=== PATIENT | female | born 1975 | race Hispanic/Latino ===

== ENCOUNTER 2018-11-17 11:48 | Day surgery (SDC) | payer BC ==
[2018-11-12 13:18] VITALS: BMI 27.1
[2018-11-17] MEDS ORDERED: ACETIC ACID 5% EXT ONE (13:45)
[2018-11-17] MEDS ORDERED: HYDROmorphone 0.5 mg/0.5 ml ISec IVP PRN (14:48)
[2018-11-17] MEDS ORDERED: Propofol 10 mg/ml Inj (20 ML) ONE (15:00)
[2018-11-17] MEDS ORDERED: Midazolam 2 MG/2 ML VIAL ONE (15:00)
[2018-11-17] MEDS ORDERED: Lactated Ringer's 1,000 ML IV ONE (16:07)
[2018-11-17 17:20] VITALS: BP 117/80; PULSE 67; RESP 18; TEMP 97; O2SAT 100
--- NOTE | 2018-11-18 03:15 | OP ---
PROCEDURE DATE: 11/17/2018 SURGEON: Renae Watkins MD HOME CARE MANAGER: None. TYPE OF ANESTHESIA: General LMA. PREOPERATIVE DIAGNOSES: Abnormal uterine bleeding, JENN 3, endometrial polyp. POSTOPERATIVE DIAGNOSES: Abnormal uterine bleeding, JENN 3, endometrial polyp. PROCEDURES PERFORMED: Hysteroscopic myomectomy, polypectomy, dilation and curettage, loop electro-excisional cautery procedure with endocervical curettage. SPECIMEN SENT TO PATHOLOGY: Endocervical lining, ectocervix, endocervix, submucosal myoma/polyp, endometrial curetting. ESTIMATED BLOOD LOSS: 10 mL. COMPLICATIONS: None. OPERATIVE FINDINGS: A 10-week sized anteverted uterus. Acetoacetic acid applied to the cervix. LEEP specimen obtained. Good hemostasis noted after the hysteroscopy with submucosal mass noted. Bilateral ostia visualized. DESCRIPTION OF PROCEDURE: The patient was taken to the operating room, where she was given general anesthesia. Once it was found to be adequate, she was positioned on the operating table in dorsal lithotomy position with legs supported using stirrups. The patient was then prepped and draped in the usual sterile fashion. A time-out was performed confirming correct patient and correct procedure. Bimanual exam was performed with the above-mentioned findings. A Reyes retractor was placed in the anterior and posterior fornix of the vagina. The cervix was adequately visualized. A single-tooth tenaculum was placed in the anterior lip of the cervix. Endocervical curettings were obtained with a Kevorkian curette and the uterus was then sounded. The cervix was sequentially dilated to allow for introduction of the hysteroscope under direct visualization using normal saline as the distention media. Bilateral ostia were visualized. There were submucosal masses noted by the right ostia adjacent to the polypoid tissue noted in the endocervical canal. The MyoSure device was then carefully inserted and the mass was carefully resected. The MyoSure device was then removed. Gentle curettage was done. The hysteroscope was then reintroduced. Good hemostasis was noted. Following this, a gentle curettage was done at 360 degrees and labeled as endometrial curettings. Following this, the single-tooth tenaculum was removed. There was good hemostasis at the tenaculum puncture site. Acetoacetic acid was applied to the cervix. Areas of uptake were visualized. A large electro-excisional loop was then used and the ectocervix portion was obtained and labeled. Following this, the endocervical canal specimen was removed using the smaller loop. The endocervical canal area was then cauterized and an endocervical curettage was obtained. The area was sterilely cauterized, and there was good hemostasis noted. All instruments were removed. At the end of the procedure, all needle, sponge and instrument counts were noted to be correct x2. The patient tolerated the procedure well and was transferred to the recovery room in stable condition. Renae Watkins MD
== END 2018-11-17 17:45 | disposition home or self-care (01) ==
LOC: C.SDS 11:48
PROVIDERS: ATTEND Obstetrics & Gynecology
DX: D06.9 Carcinoma in situ of cervix, unspecified (principal); N84.0 Polyp of corpus uteri; D25.0 Submucous leiomyoma of uterus; N93.9 Abnormal uterine and vaginal bleeding, unspecified
CPT/HCPCS: 57522; 58561; 88305; J1885; J2250; J2405; J2704; J3010; J7120